=== PATIENT | male | born 1955 | race African-American/Black ===

== ENCOUNTER → 2018-07-10 | Outpatient (CLI) | payer BC ==
[2013-12-19 22:05] VITALS: BP 163/98
[~2018-07-10] MED LIST: ASPI-630 PO; HYDR12.575 PO; HYDR12.58 PO; VENTOLIN HFA18 GM INH
[2018-07-10 09:43] LABS: BASO % 1 % (0-3); EOS # 0.2 x10^3/uL (0.0-0.7); EOS % 4 % (0-3); HEMOGLOBIN 14.8 g/dL (13.0-17.5); LYMPH # 1.1 x10^3/uL (1.0-4.8); LYMPH % 21 % (24-48); MEAN CORPUSCULAR HEMOGLOBIN 33 pg (25-35); MEAN CORPUSCULAR HGB CONC 35 g/dL (31-37); MEAN CORPUSCULAR VOLUME 96 fL (79-100); MONO # 0.5 x10^3/uL (0.0-1.1); MONO % 10 % (0-9); NEUT # 3.2 x10^3uL (1.8-7.7); NEUT % 64 % (31-73); PLATELET COUNT 237 x10^3/uL (140-400); RED BLOOD COUNT 4.49 x10^6/uL (4.30-5.70); RED CELL DISTRIBUTION WIDTH 12.6 % (11.5-14.5)
[2018-07-10 09:46] LABS: BILIRUBIN,URINE SMALL (NEG); CLARITY,URINE TURBID; NITRITE,URINE NEGATIVE (NEG); PH,URINE 5.5; PROTEIN,URINE 30 mg/dL (NEG-TRACE)
[2018-07-10 09:47] LABS: ALBUMIN 3.7 g/dL (3.4-5.0); CALCIUM 9.2 mg/dL (8.5-10.1); CREATININE 0.8 mg/dL (0.7-1.3); GFR 118.5; POTASSIUM 3.5 mmol/L (3.5-5.1)
[2018-07-10 09:53] LABS: PROTHROMBIN TIME PATIENT 13.3 SEC (11.7-14.0)
[2018-07-10 10:05] LABS: COLOR,URINE PINK; RBC,URINE TNTC /HPF (0-2)
[2018-07-10 10:06] LABS: BACTERIA,URINE 0 /HPF (0-FEW); WBC,URINE OCC /HPF (0-4)
--- NOTE | 2018-07-10 13:05 | EKG ---
[facility] [address] [place] [address] Test Date: 2018-07-10 Test Time: 11:03:54 Pat Name: JENNIFER RUFF Department: Room: Gender: Contract Administration Coordinator: : 1955 Requested By: GREY CRUZ Order Number: [id number] Reading MD: Jovanni Palmer MD Measurements Intervals [place] Rate: P: [place]: QRS: QRSD: T: QT: QTc: Interpretive Statements PROBABLE SINUS RHYTHM Electronically Signed On 07-17-2018 9:46:32 CDT by Jovanni Palmer MD
--- NOTE | 2018-07-11 16:18 | RAD ---
AP and Lateral Views of the Chest 07/10/2018 1:14 PM Indication: Preoperative Comparison: None available FINDINGS: There is a masslike opacity projecting in the right infrahilar region of the frontal view which appears to project in the posterior mediastinum on the lateral view. Size is difficult to assess but may be approximately 3 cm. Contrast-enhanced CT recommended for further evaluation. No pneumothorax pleural effusion or other focal consolidation is seen. Heart size is normal. Bony thorax is intact. Impression: Masslike opacity projecting over the right infrahilar/posterior mediastinal regions. Malignancy not excluded. Contrast-enhanced CT recommended. Results called to the ordering physician's nurse at 4:15 PM 07/11/2018 Electronically signed by: Bebeto Bethea MD (07/11/2018 4:15 PM) [id number]
== END | disposition home or self-care (01) ==
LOC: SURGPAT 13:07
PROVIDERS: ATTEND Orthopaedic Surgery
DX: Z01.818 Encounter for other preprocedural examination (principal); M17.11 Unilateral primary osteoarthritis, right knee
CPT/HCPCS: 36415; 71046; 80048; 81001; 82040; 82306; 85025; 85610; 85651; 85730; 87086; 87641; 93005

== ENCOUNTER → 2018-07-14 | Outpatient (CLI) | payer BC ==
[2013-12-19 22:05] VITALS: BP 163/98
[~2018-07-14] MED LIST changes: +IOHEXOL 300 MG/ML 100ML VIAL. IV ONE
--- NOTE | 2018-07-14 12:10 | KCIC ---
CT CHEST W/CONTRAST Indication: Abnormal chest x-ray, smoker for 20+ years Technique: Postcontrast CT imaging was performed of the chest, multiplanar reconstruction images submitted. One or more of the following individualized dose reduction techniques were utilized for this examination: 1. Automated exposure control 2. Adjustment of the mA and/or kV according to patient size 3. Use of iterative reconstruction technique. Comparison: Chest radiograph July 10, 2018; chest CT July 28, 2004 Findings: Corresponding with the chest radiograph findings, there is a large soft tissue mass of the superior right lower lobe abutting the pleural surface measuring about 4.6 cm transverse by 3.8 cm AP by 6 cm CC. This has somewhat spiculated margins. Small noncalcified superior left lower lobe pulmonary nodule axial image 28 series 3 about 0.6 cm is new since previous [address] There is no pleural or pericardial effusion or pneumothorax. There are some calcified mediastinal nodes as seen previously. There are some small noncalcified mediastinal nodes, present previously. There is diffuse hepatic steatosis. There is centrilobular emphysema. Major airways are patent. There is multilevel thoracic spondylosis. IMPRESSION: 1. There is a large soft tissue mass of the superior right lower lobe abutting the pleural surface, evidence of primary lung malignancy until proven otherwise. There is small noncalcified left lower lobe pulmonary nodule, new since 2005 exam. There is centrilobular emphysema. 2. There is diffuse hepatic steatosis. Electronically signed by: Rad Caceres MD (07/14/2018 12:07 PM) [facility]
== END | disposition home or self-care (01) ==
LOC: KCIC CT 10:45
PROVIDERS: ATTEND Family Medicine
DX: J43.2 Centrilobular emphysema (principal); R91.1 Solitary pulmonary nodule; K76.0 Fatty (change of) liver, not elsewhere classified; M47.814 Spondylosis without myelopathy or radiculopathy, thoracic region
CPT/HCPCS: 71260; Q9967

== ENCOUNTER 2018-07-31 08:00 | Outpatient (CLI) | payer BC ==
[~2018-07-31] VITALS: Ht 177.8 cm; Wt 76.7 kg
[2018-07-31] VITALS (11 sets, daily range): BP systolic 136–153; BP diastolic 68–92
[~2018-07-31 08:00] MED LIST changes: -HYDR12.58 PO; -IOHEXOL 300 MG/ML 100ML VIAL. IV ONE
[2018-07-31] MEDS ORDERED: HYDR12.58 PO (08:09)
[2018-07-31] MEDS ORDERED: LIDOCAINE WITH 8.4% SOD BICARB 3 ML DISP.SYRIN. ONE (08:59)
[2018-07-31] MEDS ORDERED: fentaNYL PF VIAL 100 MCG/2 ML VIAL ONE (09:00)
[2018-07-31] MEDS ORDERED: MIDAZOLAM HCL/PF 2 MG/2 ML VIAL. ONE (09:00)
[2018-07-31 09:06] LABS: BASO % 1 % (0-3); EOS # 0.2 x10^3/uL (0.0-0.7); EOS % 6 % (0-3); HEMATOCRIT 41.9 % (39.0-53.0); HEMOGLOBIN 14.2 g/dL (13.0-17.5); LYMPH # 1.1 x10^3/uL (1.0-4.8); LYMPH % 25 % (24-48); MEAN CORPUSCULAR HEMOGLOBIN 32 pg (25-35); MEAN CORPUSCULAR HGB CONC 34 g/dL (31-37); MEAN CORPUSCULAR VOLUME 95 fL (79-100); MONO # 0.5 x10^3/uL (0.0-1.1); MONO % 11 % (0-9); NEUT # 2.4 x10^3uL (1.8-7.7); NEUT % 57 % (31-73); PLATELET COUNT 203 x10^3/uL (140-400); RED BLOOD COUNT 4.43 x10^6/uL (4.30-5.70); RED CELL DISTRIBUTION WIDTH 12.9 % (11.5-14.5); WHITE BLOOD COUNT 4.2 x10^3/uL (4.0-11.0)
[2018-07-31 09:09] LABS: CALCIUM 9.1 mg/dL (8.5-10.1); CREATININE 0.9 mg/dL (0.7-1.3); GFR 103.5; POTASSIUM 3.8 mmol/L (3.5-5.1)
[2018-07-31 09:15] LABS: ALBUMIN 3.6 g/dL (3.4-5.0); ALBUMIN/GLOBULIN RATIO 0.9 (1.0-1.7); TOTAL BILIRUBIN 0.5 mg/dL (0.2-1.0); TOTAL PROTEIN 7.6 g/dL (6.4-8.2)
[2018-07-31] MEDS ORDERED: MIDAZOLAM HCL/PF 2 MG/2 ML VIAL. IV ONE (09:15)
[2018-07-31] MEDS ORDERED: LIDOCAINE WITH 8.4% SOD BICARB 3 ML DISP.SYRIN. IJ ONE (09:15)
[2018-07-31] MEDS ORDERED: fentaNYL PF VIAL 100 MCG/2 ML VIAL IV ONE (09:15)
--- NOTE | 2018-07-31 09:34 | PDOC ---
MODERATE SEDATION ASSESSMENT RISKS/ALTERNATIVES Risks/Alternatives Risks and alternatives of this type of sedation and procedure discussed with: RISK/ALTERNATIVES: Patient H & P ON CHART H & P H & P on chart and reviewed for co-morbid conditions and appropriate labs. H&P ON CHART: Yes STATUS PREG STATUS ASSESSED: Yes MEDS/ALLERGIES REVIEWED Meds/Allergies Reviewed Medications and Allergies including time and route of recently administered narcotics and sedatives. MEDS/ALLERGIES REVIEWED: Yes ASA RATING ASA RATING: II AIRWAY ASSESSMENT Airway Assessment Airway patency, oral function limitations, presence of caps, crowns, dentures, partials, and ability to extend neck assessed. AIRWAY ASSESSMENT: Yes MALLAMPATI SCORE MALLAMPATI SCORE: II PRE-SEDATION ASSESSMENT PRE-SEDATION ASSESSMENT: Yes ORESTES RODRIGES MD July 31, 2018 09:34
--- NOTE | 2018-07-31 11:55 | NUR ---
Discharge Note: JENNIFER RUFF Discharge instructions and discharge home medications reviewed with Patient and a copy given. All questions have been answered and understanding verbalized. The following instructions and handouts were given: post lung biopsy info. Discontinued lines and drains: Peripheral IV intact. Patient discharged to Home or Self Care withSpousevia Wheelchair
--- NOTE | 2018-07-31 12:44 | RAD ---
CT-guided lung biopsy, 07/31/2018 Indication: Right basilar lung mass Discussion: The risks and benefits of the procedure were discussed the patient. Informed consent was obtained. The patient was placed in the prone position on the CT scanner. A timeout procedure was performed. CT imaging demonstrates a medial basilar mass in the right lung. The overlying skin was prepped and draped using sterile barrier technique. 1% lidocaine was administered for local anesthesia. Under intermittent CT guidance a 17-gauge needle was advanced into the mass. 18-gauge core biopsy samples were obtained. Samples were placed in formalin. The needle was removed and manual pressure held. Repeat imaging demonstrates no pneumothorax or other immediate complication. The patient tolerated the procedure well was transferred to the recovery area in stable condition. The procedure was performed under conscious sedation, including continuous cardiopulmonary monitoring via a dedicated sedation nurse. Face to face sedation time : 30 minutes Impression: CT-guided biopsy, right basilar lung mass PQRS Compliance Statement: One or more of the following individualized dose reduction techniques were utilized for this examination: 1. Automated exposure control 2. Adjustment of the mA and/or kV according to patient size 3. Use of iterative reconstruction technique
--- NOTE | 2018-07-31 13:04 | RAD ---
Chest radiograph 07/31/2018 11:30 AM INDICATION: Post lung biopsy COMPARISON: July 10, 2018 TECHNIQUE: Portable upright frontal view of the chest is provided. FINDINGS: The cardiomediastinal silhouette is within normal limits. There are no pleural effusions. There is no pulmonary vascular congestion. There is no pneumothorax. Stable right hilar mass. Otherwise, lungs are clear. No significant osseous abnormality is identified. IMPRESSION: Stable right hilar mass. No definite pneumothorax. Electronically signed by: Miladys Mendez MD (07/31/2018 1:01 PM) [facility]
--- NOTE | 2018-08-01 13:07 | PATHOLOGY ---
[facility] Accession Number: [id number] . 01 Material submitted: . lung - RIGHT LUNG MASS. Modifiers: right . 01 Clinical history: . Right lung mass . 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 SEE COMMENT. . (JPM:tanja; 08/01/2018) QMS/08/01/2018 . 02 Comment: Sections of the right lung mass image-guided needle biopsy reveal a malignant epithelial neoplasm. The malignant cells form irregular acinar structures and irregular solid nests within an inflamed reactive desmoplastic stroma. The malignant cells have ample amounts of eosinophilic cytoplasm, and possess enlarged, moderately pleomorphic nuclei containing prominent nucleoli. There are mitotic figures present. Tumor cells within solid nests focally contain intracytoplasmic mucin vacuoles. 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 The case is also examined by Dr. Wolf, who concurs with the diagnosis. (JPM:tanja; 08/01/2018) . 02 Electronically signed: . Christian Meier MD, Pathologist NPI- [id number] . 01 Gross description: . The specimen is received in formalin, labeled "David Mendes, right lung mass". Received are two needle cores of pale dennis soft tissue ranging in length from 0.9 to 1.1 cm in length by 0.1 cm in diameter. The specimen is submitted entirely in cassette A1 and A2. (CAA; 07/31/2018) QAC/QAC . 02 Pathologist provided ICD-10: C34.91 . 02 CPT . 931117 Specimen Comment: A courtesy copy of this report has been sent to Specimen Comment: [phone], , . Specimen Comment: Report sent to ,DR SHIRLEY / DR RODRIGES Performed at: [address], [place] [id number] MD Al Beaulieu MD Phone: [phone] Performed at: 02 [facility] [address] [place], [place] [id number] MD Christian Meier MD Phone: [phone]
== END 2018-07-31 12:00 | disposition home or self-care (01) ==
LOC: INTRAD 08:00
PROVIDERS: ATTEND Internal Medicine Critical Care Medicine
DX: C34.91 Malignant neoplasm of unspecified part of right bronchus or lung (principal); Z79.01 Long term (current) use of anticoagulants; Z79.899 Other long term (current) drug therapy
CPT/HCPCS: 32405; 36415; 71045; 77012; 80053; 85025; 85610; 99152; 99153; J2250; J3010; 88305

== ENCOUNTER → 2018-08-03 | Outpatient (CLI) | payer BC ==
[2018-07-31 11:31] VITALS: BP 140/77
[~2018-08-03] MED LIST changes: +HYDR12.58 PO
--- NOTE | 2018-08-03 14:39 | RAD ---
FDG tumor localization scan, PET/CT, 08/03/2018: History: Lung cancer Following IV injection of 13.4 mCi of 18 F-FDG, imaging was performed from the skull base to the proximal thighs. The noncontrast CT component was performed for attenuation correction and anatomic localization purposes rather than for primary diagnosis. The patient's blood glucose level the time of injection was 96 MG/DL. The patient's known 5 cm mass in the medial aspect of the superior segment of the right lower lobe is hypermetabolic demonstrating a maximum SUV of 11.9. There is a nearby but separate focus of increased FDG uptake in the subcarinal region demonstrating a maximum SUV of 4.1. It lies directly adjacent to a calcified lymph node. No other hilar or mediastinal adenopathy is seen. A tiny 5 mm nodule is identified posteriorly in the left lower lobe on the CT component. No abnormal FDG uptake is evident at this level, however, that may be due to the small size of this nodule. No other pulmonary abnormality is seen. Physiologic activity is present in the neck. No hypermetabolic neck lesion is seen. Normal GI tract and urinary tract activity is present in the abdomen and pelvis. No hypermetabolic abdominal or pelvic lesion is seen. Incidental CT findings include the presence of colonic diverticulosis most extensive in the sigmoid region. There is extensive hepatic steatosis. IMPRESSION: 1. Hypermetabolic right lower lobe mass compatible with lung malignancy. 2. Nearby tiny focus of increased activity in the subcarinal region raising the possibility of a trinity metastasis. 3. No additional FDG/PET evidence of metastatic disease. 4. No abnormal FDG uptake is evident related to the patient's tiny left lower lobe pulmonary nodule, however, that may be due to its small size. Further CT surveillance is suggested.
== END | disposition home or self-care (01) ==
LOC: PETSC 13:52
PROVIDERS: ATTEND Internal Medicine Critical Care Medicine
DX: R91.8 Other nonspecific abnormal finding of lung field (principal); I89.8 Other specified noninfective disorders of lymphatic vessels and lymph nodes; K57.30 Diverticulosis of large intestine without perforation or abscess without bleeding; K76.0 Fatty (change of) liver, not elsewhere classified; Z85.118 Personal history of other malignant neoplasm of bronchus and lung
CPT/HCPCS: 78815; A9552